=== PATIENT | female | born 1990 | race Caucasian/White ===

== ENCOUNTER → 2022-01-12 | Outpatient (REF) | payer OTHER | LOC: M PLALAB 10:48 | PROVIDERS: ATTEND Nurse Practitioner Family | DX: Z12.4 Encounter for screening for malignant neoplasm of cervix (principal) | CPT/HCPCS: 87624; G0123 ==

== ENCOUNTER → 2022-02-23 | Outpatient (CLI) | payer OTHER ==
[2022-02-23 13:33] LABS: FREE T4 1.08 NG/DL (0.89-1.76); LUTEINIZING HORMONE 11.2 mIU/ML; PROLACTIN 6.91 NG/ML; THYROID STIMULATING HORMONE 3.011 uIU/ML (0.55-4.78)
[2022-02-23 13:34] LABS: FOLLICLE STIMULATING HORMONE 9.2 mIU/ML; PROGESTERONE 0.21 NG/ML
== END ==
LOC: M PLALAB 12:02
PROVIDERS: ATTEND Specialist
DX: N92.6 Irregular menstruation, unspecified (principal)

== ENCOUNTER → 2022-10-03 | Outpatient (CLI) | payer OTHER | LOC: M WHC 07:37 | PROVIDERS: ATTEND Specialist | DX: N92.6 Irregular menstruation, unspecified (principal) ==

== ENCOUNTER → 2023-09-01 | Outpatient (CLI) | payer OTHER ==
[2023-09-01 11:08] LABS: ESTRADIOL 172.6 PG/ML
== END ==
LOC: M PLALAB 07:11
PROVIDERS: ATTEND Obstetrics & Gynecology Reproductive Endocrinology
DX: Z31.49 Encounter for other procreative investigation and testing (principal)

== ENCOUNTER → 2023-10-03 | Outpatient (CLI) | payer OTHER ==
[2023-10-03 10:34] LABS: ESTRADIOL 38.2 PG/ML
[2023-10-03 10:35] LABS: PROGESTERONE 24.01 NG/ML
== END ==
LOC: M PLALAB 07:11
PROVIDERS: ATTEND Obstetrics & Gynecology Reproductive Endocrinology
DX: Z31.49 Encounter for other procreative investigation and testing (principal)

== ENCOUNTER → 2023-10-10 | Outpatient (CLI) | payer OTHER ==
[2023-10-10 10:33] LABS: HCG, SERUM QUANTITATIVE 21.5 MIU/ML (<4.2)
[2023-10-10 10:37] LABS: PROGESTERONE 16.5 NG/ML
== END ==
LOC: M PLALAB 07:26
PROVIDERS: ATTEND Obstetrics & Gynecology Reproductive Endocrinology
DX: Z32.00 Encounter for pregnancy test, result unknown (principal)

== ENCOUNTER → 2023-10-12 | Outpatient (CLI) | payer OTHER ==
[2023-10-12 10:52] LABS: HCG, SERUM QUANTITATIVE 42.5 MIU/ML (<4.2)
[2023-10-12 10:56] LABS: PROGESTERONE 12.77 NG/ML; THYROID STIMULATING HORMONE 2.927 uIU/ML (0.55-4.78)
[2023-10-12 10:57] LABS: ESTRADIOL 258.9 PG/ML
== END ==
LOC: M PLALAB 07:04
PROVIDERS: ATTEND Obstetrics & Gynecology Reproductive Endocrinology
DX: Z32.01 Encounter for pregnancy test, result positive (principal)